=== PATIENT | female | born 2000 | race Caucasian/White ===

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

== ENCOUNTER → 2018-01-23 | Outpatient (REF) | payer OTHER | LOC: M LAB REF 17:14 | DX: Z34.03 Encounter for supervision of normal first pregnancy, third trimester (principal) ==

== ENCOUNTER 2018-02-21 02:35 | Inpatient (IN) | payer OTHER ==
[2018-02-21 06:46] LABS: HEMATOCRIT 34.3 % (36.0-47.0); HEMOGLOBIN 11.7 g/dl (12.0-15.5); MEAN CORPUSCULAR HEMOGLOBIN 30.8 pg (27.0-33.0); MEAN CORPUSCULAR HGB CONC 34.1 g/dl (32.0-36.5); MEAN CORPUSCULAR VOLUME 90.3 fl (80.0-96.0); PLATELET COUNT, AUTOMATED 186 10^3/uL (150-450); RED CELL DISTRIBUTION WIDTH 13.5 % (11.5-14.5); WHITE BLOOD COUNT 13.6 10^3/uL (4.0-10.0)
[2018-02-21] MEDS ORDERED: FENTANYL 2MCG/ML ROPIVACAINE 0.2% IN 0.9% NACL 200ML IVBAG As Ordered (07:23)
[2018-02-21] MEDS ORDERED: ONDANSETRON 4MG/2ML VIAL (J2405) IV ×2 (09:15→18:00)
[2018-02-21] MEDS ORDERED: ePHEDrine SULFATE 25 MG/5 ML(5MG/ML) SYRINGE IV (09:15)
[2018-02-21] MEDS ORDERED: FENTANYL/ROPIVACAINE/NACL BAG 200 ML EPIDURAL (09:15)
[2018-02-21] MEDS ORDERED: REFRIGERATOR IV KEYS XX (09:15)
[2018-02-21] MEDS ORDERED: NALOXONE INJ 0.4 MG/1 ML VIAL (J2310) IV (09:15)
[2018-02-21] MEDS ORDERED: LACTATED RINGER'S 1000 ML IV (09:15)
[2018-02-21] MEDS ORDERED: EPIDURAL/PCA KEYS XX (09:15)
[2018-02-21] MEDS ORDERED: diphenhydrAMINE INJ 50MG/ML VIAL (J1200) IV (09:15)
[2018-02-21] MEDS ORDERED: EPIDURAL COMMENT XX (09:15)
[2018-02-21] MEDS ORDERED: OXYTOCIN 30 UNITS IN 0.9% NaCl 500ML IV BAG (J2590) As Ordered (14:20)
[2018-02-21] MEDS ORDERED: METHYLERGONOVINE MALEATE 0.2 MG TAB PO (18:00)
[2018-02-21] MEDS ORDERED: DIBUCAINE 1% OINTMENT 30GM TOP (18:00)
[2018-02-21] MEDS ORDERED: ACETAMINOPHEN 500 MG TAB PO (18:00)
[2018-02-21 18:24] LABS: CORD GAS ABE A -4.4; CORD GAS ABE V -3.3; CORD GAS HCO3 A 22.7 MEQ/L; CORD GAS O2 SAT A 36.8 %; CORD GAS O2 SAT V 66.9 %; CORD GAS PCO2 A 49.3 mmHg; CORD GAS PCO2 V 40.7 mmHg; CORD GAS PH A 7.281 UNITS; CORD GAS PH V 7.351 UNITS; CORD GAS PO2 A 19.6 mmHg; CORD GAS PO2 V 28.4 mmHg; CORD GAS SBC A 19.5 MEQ/L; CORD GAS TCO2 A 24.2 MEQ/L; CORD GAS TCO2 V 23.3 MEQ/L
[2018-02-21] MEDS: OXYTOCIN DRIP 30 UNITS in APPROPRIATE DILUENT 1 EA IV (19:12)
[2018-02-21] MEDS: METHYLERGONOVINE MALEATE 0.2 MG/ML VIAL (J2210) IM (19:12)
[2018-02-21] MEDS: PRENATAL VITAMINS CHEWABLE TABLET PO (19:12)
[2018-02-22] MEDS: IBUPROFEN 800 MG TAB PO ×3 (02:08→20:57)
[2018-02-22] MEDS: RHOGAM 300 MCG (1500 IU) INJ (J2790) IM (07:29)
[2018-02-22] MEDS: MEASLES,MUMPS,RUBELLA VACCINE INJ (MMR-II) (90707) SC (07:29)
[2018-02-22] MEDS: PRENATAL VITAMINS CHEWABLE TABLET PO (09:27)
[2018-02-22] MEDS: DOCUSATE SODIUM 100 MG CAP PO (20:57)
[2018-02-23] MEDS: PRENATAL VITAMINS CHEWABLE TABLET PO (08:27)
[2018-02-23] MEDS: METHYLERGONOVINE MALEATE 0.2 MG/ML VIAL (J2210) IM (08:31)
== END 2018-02-23 12:05 | disposition home or self-care (01) | DRG 775 ==
LOC: M LDO 02:35 → M LDI 06:11 → M OBS 18:52
PROVIDERS: Obstetrics & Gynecology
PROC: 10E0XZZ Delivery of Products of Conception, External Approach (ICD-10-PCS; principal; 2018-02-21)
PROC: 0KQM0ZZ Repair Perineum Muscle, Open Approach (ICD-10-PCS; 2018-02-21)
DX: O99.89 Other specified diseases and conditions complicating pregnancy, childbirth and the puerperium (principal); O75.89 Other specified complications of labor and delivery; Z3A.39 39 weeks gestation of pregnancy; H91.93 Unspecified hearing loss, bilateral; O70.1 Second degree perineal laceration during delivery; O26.893 Other specified pregnancy related conditions, third trimester; Z37.0 Single live birth

== ENCOUNTER → 2019-07-17 | Outpatient (REF) | payer OTHER ==
[~2019-07-17] MED LIST: IBUP-1114 PO; MAPA500T2 PO; PRENTAB55 PO
== END ==
LOC: M LAB REF 19:05
PROVIDERS: ATTEND Physician Assistant Medical
DX: J02.9 Acute pharyngitis, unspecified (principal)

== ENCOUNTER → 2021-08-06 | Outpatient (REF) | payer OTHER | LOC: M LAB REF 19:00 | PROVIDERS: ATTEND Physician Assistant | DX: R05.9 Cough, unspecified (principal) ==

== ENCOUNTER → 2021-09-29 | Outpatient (REF) | payer OTHER | LOC: M LAB REF 19:22 | PROVIDERS: ATTEND Physician Assistant | DX: N39.0 Urinary tract infection, site not specified (principal) ==

== ENCOUNTER → 2022-10-18 | Outpatient (CLI) | payer OTHER ==
[2022-10-18 14:09] LABS: HEMATOCRIT 43.5 % (36.0-47.0); HEMOGLOBIN 14.2 g/dl (12.0-15.5); MEAN CORPUSCULAR HEMOGLOBIN 31.3 pg (27.0-33.0); MEAN CORPUSCULAR HGB CONC 32.6 g/dl (32.0-36.5); PLATELET COUNT, AUTOMATED 298 10^3/uL (150-450); RED BLOOD COUNT 4.53 10^6/uL (4.00-5.40); WHITE BLOOD COUNT 4.4 10^3/uL (4.0-10.0)
[2022-10-18 14:38] LABS: ALBUMIN 4.1 G/DL (3.2-5.2); ALKALINE PHOSPHATASE 73 U/L (46-116); ALT/SGPT 14 U/L (7.0-40); AST/SGOT 14 U/L (<34); BILIRUBIN,TOTAL 0.7 MG/DL (0.3-1.2); BLOOD UREA NITROGEN 12 MG/DL (9-23); CALCIUM LEVEL 9.3 MG/DL (8.5-10.1); CARBON DIOXIDE LEVEL 26 MMOL/L (20-31); CHLORIDE LEVEL 107 MMOL/L (98-107); CREATININE FOR GFR 0.73 MG/DL (0.55-1.30); GLOMERULAR FILTRATION RATE > 60.0 (>60); GLUCOSE, FASTING 95 MG/DL (60-100); POTASSIUM SERUM 4.5 MMOL/L (3.5-5.1); SODIUM LEVEL 141 MMOL/L (136-145); TOTAL PROTEIN 7.1 G/DL (5.7-8.2)
== END ==
LOC: M PLALAB 09:45
PROVIDERS: ATTEND Psychiatry & Neurology Psychiatry
DX: F40.10 Social phobia, unspecified (principal)

== ENCOUNTER 2023-07-04 19:40 | Emergency (ER) | payer OTHER ==
[~2023-07-04] VITALS: Ht 170.2 cm; Wt 61.4 kg
[2023-07-04 19:54] VITALS: BP 127/73; TEMP 99; O2SAT 95
== END 2023-07-04 21:24 | disposition home or self-care (01) ==
LOC: M ED 19:40 → EDBD 19:40 → M ED 21:24
DX: S81.812A Laceration without foreign body, left lower leg, initial encounter (principal); S81.012A Laceration without foreign body, left knee, initial encounter; W20.8XXA Other cause of strike by thrown, projected or falling object, initial encounter; Y92.009 Unspecified place in unspecified non-institutional (private) residence as the place of occurrence of the external cause; Y93.89 Activity, other specified; Y99.8 Other external cause status; Z79.899 Other long term (current) drug therapy

== ENCOUNTER → 2024-09-24 | Outpatient (REF) | payer OTHER ==
[2024-09-24 18:07] LABS: BASO # 0.1 10^3/uL (0.0-0.2); BASO % 0.8 % (0.0-1.0); EOS % 0.7 % (0.0-3.0); HEMATOCRIT 41.8 % (36.0-47.0); HEMOGLOBIN 13.9 g/dl (12.0-15.5); LYMPH % 32.4 % (24.0-44.0); MEAN CORPUSCULAR HEMOGLOBIN 31.4 pg (27.0-33.0); MEAN CORPUSCULAR HGB CONC 33.3 g/dl (32.0-36.5); MEAN CORPUSCULAR VOLUME 94.4 fl (80.0-96.0); MONO # 0.4 10^3/uL (0.0-0.8); MONO % 7.2 % (2.0-8.0); NEUTROPHILS # 3.6 10^3/uL (1.5-8.5); NEUTROPHILS % 58.4 % (36.0-66.0); PLATELET COUNT, AUTOMATED 315 10^3/uL (150-450); RED BLOOD COUNT 4.43 10^6/uL (4.00-5.40); WHITE BLOOD COUNT 6.1 10^3/uL (4.0-10.0)
[2024-09-24 18:30] LABS: ALBUMIN 4.2 G/DL (3.2-5.2); ALKALINE PHOSPHATASE 91 U/L (35-104); ALT/SGPT 15 U/L (7.0-40); AST/SGOT 9 U/L (<34); BILIRUBIN,TOTAL 0.6 MG/DL (0.3-1.2); BLOOD UREA NITROGEN 13 MG/DL (9-23); CALCIUM LEVEL 9.4 MG/DL (8.5-10.1); CARBON DIOXIDE LEVEL 26 MMOL/L (20-31); CHLORIDE LEVEL 109 MMOL/L (98-107); CREATININE FOR GFR 0.83 MG/DL (0.55-1.30); FREE T4 1.09 NG/DL (0.89-1.76); GLOMERULAR FILTRATION RATE > 60.0 (>60); GLUCOSE, FASTING 81 MG/DL (60-100); IRON (FE) 94 UG/DL (50-170); PERCENT SATURATION 29.2 % (13.2-45.0); POTASSIUM SERUM 4.1 MMOL/L (3.5-5.1); SODIUM LEVEL 142 MMOL/L (136-145); TOTAL IRON BINDING CAPACITY 322 UG/DL (250-425); TOTAL PROTEIN 7.3 G/DL (5.7-8.2)
[2024-09-24 18:31] LABS: FOLATE 10.8 NG/ML (>5.4); TOTAL 25(OH) VITAMIN D 23.8 NG/ML (20.0-100.0); VITAMIN B12 LEVEL 448 PG/ML (211-911)
[2024-09-24 18:32] LABS: FERRITIN 78.2 NG/ML (7.3-270.7); THYROID STIMULATING HORMONE 1.387 uIU/ML (0.55-4.78)
== END ==
LOC: M SFHCADAM 15:23
PROVIDERS: ATTEND Physician Assistant
DX: J30.89 Other allergic rhinitis (principal); Z01.10 Encounter for examination of ears and hearing without abnormal findings; R53.83 Other fatigue; E61.1 Iron deficiency